=== PATIENT | male | born 1935 | race Caucasian/White ===

== ENCOUNTER 2019-11-04 00:23 | Emergency (ER) | payer MEDICARE, OTHER ==
[~2019-11-04] VITALS: Ht 180.3 cm; Wt 77.1 kg
[2019-11-04] MEDS ORDERED: OCUVITE ADULT1 EAC1 PO (00:39)
[2019-11-04] MEDS ORDERED: NAMENDA 10 MG T10 MG PO (00:40)
[2019-11-04] MEDS ORDERED: DIVALPROEX SOD125 MG PO (00:40)
[2019-11-04] MEDS ORDERED: MELATONIN5 MG PO (00:40)
[2019-11-04] MEDS ORDERED: OMEPRAZOLE40 MG PO (00:41)
[2019-11-04] MEDS ORDERED: SEROQUEL 50 MG50 M1 PO (00:41)
[2019-11-04] MEDS ORDERED: SEROQUEL 25 MG25 MG PO (00:41)
[2019-11-04] MEDS ORDERED: THEREMS1 EAC1 PO (00:42)
[2019-11-04] MEDS ORDERED: TRIAMTERENE/HCT1 CA1 PO (00:43)
[2019-11-04 01:40] LABS: ABSOLUTE EOSINOPHILS 0.1 thou/uL (0.0-0.7); ABSOLUTE LYMPHOCYTES 1.3 thou/uL (0.8-5.3); ABSOLUTE MONOCYTES 0.4 thou/uL (0.0-1.2); BASOPHILS 0.7 %; EOSINOPHILS 2.6 %; HEMATOCRIT 39.1 % (42.0-52.0); HEMOGLOBIN 13.4 gm/dL (14.0-18.0); MCH 32.9 pg (26.0-34.0); MCHC 34.4 g/dL (28.0-37.0); MCV 95.8 fL (80.0-100.0); MPV 7.4 fl. (7.2-11.1); NUCLEATED RBCS 0 /100WBC; PLATELET COUNT* 160 thou/uL (150-400); POLYS 51.7 %; RBC 4.09 mil/uL (4.50-6.00); RDW-CV 13.9 % (10.5-14.5); WBC 3.9 thou/uL (4.0-11.0)
[2019-11-04 01:43] LABS: CALCIUM 8.3 mg/dL (8.5-10.1); POTASSIUM 3.6 mmol/L (3.5-5.1)
[2019-11-04 01:44] LABS: INR 1.1; PROTIME 11.2 Seconds (9.20-11.50)
[2019-11-04 01:53] LABS: ALBUMIN 2.9 g/dL (3.4-5.0); MAGNESIUM 1.8 mg/dL (1.8-2.4); TOTAL BILIRUBIN 0.3 mg/dL (<0.1-1.0); TOTAL PROTEIN 6.7 g/dL (6.4-8.2)
[2019-11-04 04:13] LABS: URINE BILIRUBIN NEGATIVE (Negative); URINE BLOOD NEGATIVE (Negative); URINE CLARITY CLEAR; URINE COLOR YELLOW; URINE GLUCOSE-RANDOM NEGATIVE (Negative); URINE KETONES NEGATIVE (Negative); URINE LEUKOCYTES-REFLEX 1+ (Negative); URINE NITRITE-REFLEX NEGATIVE (Negative); URINE PROTEIN NEGATIVE (Negative); URINE SPECIFIC GRAVITY 1.015 (1.005-1.030); URINE UROBILINOGEN 0.2 E.U./dl (0.2-1.0)
[2019-11-04 04:46] LABS: CASTS None Seen /LPF (None Seen); SQUAMOUS 0-3 Few /LPF (0-3)
[2019-11-04 04:47] LABS: BACTERIA-REFLEX 1-9 Few /HPF (None Seen); CRYSTALS None Seen /LPF (None Seen); URINE RBC 3-10 Few /HPF (0-2)
[2019-11-04] MEDS ORDERED: BACTRIM DS TAB1 EACH PO (04:58)
[2019-11-04 06:00] VITALS: BP 130/60
--- NOTE | 2019-11-04 15:28 | EKG ---
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1935 Requested By: Fanny Leiva Order Number: [id number] MD: Brian Paiz Measurements Intervals [place] Rate: 52 P: 73 CA: 183 QRS: 85 QRSD: 145 T: 33 QT: 462 QTc: 430 Interpretive Statements Sinus rhythm Atrial premature complex Right bundle branch block Baseline wander in lead(s) V1 No previous ECG available for comparison Electronically Signed On 11-04-2019 15:27:20 CDT by Brian Paiz [email or web address] <ELECTRONICALLY SIGNED> By: Brian Paiz MD, [facility] 11/04/19 1527 0205 0205 Brian Paiz MD, [facility] /EPI
== END 2019-11-04 06:00 | disposition home or self-care (01) ==
LOC: M.ERS 00:23
PROVIDERS: Emergency Medicine
DX: N39.0 Urinary tract infection, site not specified (principal); R22.0 Localized swelling, mass and lump, head; G30.9 Alzheimer's disease, unspecified; F02.80 Dementia in other diseases classified elsewhere, unspecified severity, without behavioral disturbance, psychotic disturbance, mood disturbance, and anxiety; I10 Essential (primary) hypertension; M19.90 Unspecified osteoarthritis, unspecified site; Z88.1 Allergy status to other antibiotic agents; Z88.0 Allergy status to penicillin; Z79.899 Other long term (current) drug therapy; W19.XXXA Unspecified fall, initial encounter; Y93.89 Activity, other specified; Y92.129 Unspecified place in nursing home as the place of occurrence of the external cause; Y99.8 Other external cause status

== ENCOUNTER 2020-01-07 11:45 | Inpatient (IN) | payer MEDICARE, OTHER ==
[~2020-01-07] VITALS: Ht 182.9 cm; Wt 57.5 kg
--- NOTE | ~2020-01-07 | CON ---
[address] [address] CONSULTATION Name: ZOEY HENSLEY Room: [address] IN .R.#: [id number] Admission: 01/08/20 Attend Phys: Marie Saab MD Discharge: Date of : 31 Report #: [id number] THIS REPORT FOR: //name// cc: Sharonda Simon Kathryn C. DO ~ THIS REPORT FOR: //name// CC: Sharonda Saab DATE OF SERVICE: 01/21/2020 REQUESTING PHYSICIAN: Consult has been requested by the Dr. Mondragon INDICATION FOR CONSULTATION: COVID-19. HISTORY OF PRESENT ILLNESS: This is an 85-year-old gentleman. He has a history of dementia. He has been in this hospital since 01/07/2020 and was admitted with COVID-19. His first COVID-19 antigens were positive and the third has just come back negative. Interestingly, he had a COVID-19 PCR performed on 01/07/2020, which was negative. The patient has just been tapered down from 6 mg of dexamethasone to 4. He is on room air. He is afebrile. He is hemodynamically stable. The patient has a history of dementia and is unable to provide any further history or review of systems. PAST MEDICAL HISTORY: Dementia, Alzheimer's disease, hearing loss, osteoarthritis, bilateral leg weakness, and hypertension. SOCIAL HISTORY: There is no known history of smoking, ethanol abuse or drug abuse. CURRENT MEDICATIONS: [email or web address]. HOME MEDICATIONS: List in [facility] reviewed. ALLERGIES: PENICILLINS AND CLINDAMYCIN ARE MENTIONED ALLERGIES. FAMILY HISTORY: There is no known pertinent family history. PHYSICAL EXAMINATION: GENERAL: He is fully awake. He is screaming out and is confused. VITAL SIGNS: Pulse of 100 and a blood pressure of 127/82. He is saturating 95%. He is not on supplemental oxygen. Respiratory rate is mildly elevated to 20. His temperature is 37.0. NECK: Does not show raised JVP. CHEST: [place] [address] CONSULTATION Name: ZOEY HENSLEY Room: [address]#: [id number] Admission: 01/08/20 Attend Phys: Marie Saab MD Discharge: Date of : 31 Report #: [id number] HEART: Regular, no murmur. ABDOMEN: Soft and nontender. EXTREMITIES: Lower extremities show no edema and no calf tenderness. IMAGING DATA: We just repeated a chest x-ray shows chronic changes. There is mild atelectasis in the right hilar markings are more prominent than the previous chest x-ray. LABORATORY DATA: The patient's lab work including the CBC as well as [facility]istries [facility] and these are reviewed. He is in acute renal failure and his electrolytes are markedly abnormal. ASSESSMENT AND PLAN: 1. COVID-19. Agree with current management. We will taper off of dexamethasone. Chest x-ray findings are as above. We would only watch for now. I did not start antibiotics. 2. Acute renal failure with hypernatremia and hypokalemia. We will start IV fluids and we will correct electrolytes. We will repeat a chest x-ray as well as labs in the morning. 3. Dementia. 4. Deep venous thrombosis prophylaxis, he is on Lovenox. We will discontinue considering acute renal failure, we will plan to start subcutaneous heparin tomorrow. Thanks for this consultation. By: 21 [id number] Aguayo MD /ridge
[~2020-01-07 11:45] MED LIST: BACTRIM DS TAB1 EACH PO; DIVALPROEX SOD125 MG PO; MELATONIN5 MG PO; NAMENDA 10 MG T10 MG PO; OCUVITE ADULT1 EAC1 PO; OMEPRAZOLE40 MG PO; SEROQUEL 25 MG25 MG PO; SEROQUEL 50 MG50 M1 PO; THEREMS-M1 EACH PO; TRIAMTERENE/HCT1 CA1 PO
[2020-01-07 12:03] VITALS: BP 151/65
[2020-01-07] MEDS ORDERED: DESYREL150 MG PO (12:20)
[2020-01-07] MEDS ORDERED: TYLENOL325 M1 PO (12:20)
[2020-01-07 12:25] LABS: ABSOLUTE MONOCYTES 0.8 thou/uL (0.0-1.2); BASOPHILS 0.3 %; EOSINOPHILS 0.3 %; HEMATOCRIT 39.1 % (42.0-52.0); HEMOGLOBIN 13.5 gm/dL (14.0-18.0); LYMPHOCYTES 13.1 %; MCHC 34.5 g/dL (28.0-37.0); MCV 95.8 fL (80.0-100.0); MONOCYTES 10.2 %; MPV 7.7 fl. (7.2-11.1); NUCLEATED RBCS 0 /100WBC; PLATELET COUNT* 142 thou/uL (150-400); POLYS 76.1 %; RBC 4.08 mil/uL (4.50-6.00); RDW-CV 12.9 % (10.5-14.5); WBC 7.9 thou/uL (4.0-11.0)
[2020-01-07 12:34] LABS: CALCIUM 8.6 mg/dL (8.5-10.1); CREATININE 1.1 mg/dL (0.6-1.3); POTASSIUM 3.7 mmol/L (3.5-5.1)
[2020-01-07 12:40] LABS: TOTAL BILIRUBIN 0.9 mg/dL (<0.1-1.0); TOTAL PROTEIN 6.9 g/dL (6.4-8.2)
[2020-01-07 16:22] LABS: URINE BLOOD NEGATIVE (Negative); URINE CLARITY CLEAR; URINE COLOR YELLOW; URINE GLUCOSE-RANDOM NEGATIVE (Negative); URINE KETONES 2+ (Negative); URINE LEUKOCYTES-REFLEX NEGATIVE (Negative); URINE NITRITE-REFLEX NEGATIVE (Negative); URINE PROTEIN 1+ (Negative); URINE SPECIFIC GRAVITY >= 1.030 (1.005-1.030)
[2020-01-07 16:26] LABS: ICTOTEST (BILI CONFIRMATORY) Negative (Negative); URINE BILIRUBIN 1+ (Negative)
--- NOTE | 2020-01-07 16:45 | EKG ---
[place] [address] ELECTROCARDIOGRAM REPORT Name: ZOEY HENSLEY Room: [place] [address] ADM IN .R.#: [id number] Admission: 01/07/20 Attend Phys: Marie Saab, Discharge: Date of : 31 Date of Service: 01/07/20 1156 Report #: [id number] THIS REPORT FOR: //name// [facility] Test Date: 2020-01-07 Test Time: 11:56:19 Pat Name: ZOEY HENSLEY Department: Room: [place] [address] Gender: M Graduate Student: JOSH : 1935 Requested By: Marie Saab Order Number: [id number] Sergey MD: Luis Sahu Measurements Intervals [place] Rate: 88 P: 61 AK: 213 QRS: 77 QRSD: 136 T: 264 QT: 395 QTc: 478 Interpretive Statements atrial sensed and Ventricular-paced complexes No further analysis attempted due to paced rhythm Compared to ECG 11/04/2019 02:05:10 Atrial premature complex(es) no longer present ventricular paced rhythm noted Electronically Signed On 01-07-2020 16:45:07 CDT by Luis Sahu [email or web address] <ELECTRONICALLY SIGNED> By: Luis Sahu MD, FAC 01/07/20 1645 1156 1156 Luis Sahu MD, [facility] /EPI
[2020-01-07 19:26] LABS: APTT 27.8 Seconds (25.0-31.3); INR 1.1; PROTIME 11.4 Seconds (9.20-11.50)
[2020-01-07 19:32] LABS: NT-PRO BRAIN NAT PEPTIDE 1634 pg/mL (<300); TROPONIN-I LEVEL <0.06 ng/mL (<0.06)
[2020-01-07 20:00] VITALS: BP 140/88
[2020-01-08 08:00] VITALS: BP 158/39
[2020-01-08 12:00] VITALS: BP 158/82
[2020-01-08 12:04] VITALS: BP 171/69
[2020-01-08 20:00] VITALS: BP 143/77
[2020-01-09 00:09] VITALS: BP 138/65
[2020-01-09 04:32] VITALS: BP 105/44
[2020-01-09 05:03] LABS: ABSOLUTE EOSINOPHILS 0.1 thou/uL (0.0-0.7); ABSOLUTE LYMPHOCYTES 1.1 thou/uL (0.8-5.3); ABSOLUTE MONOCYTES 0.8 thou/uL (0.0-1.2); ABSOLUTE NEUTROPHILS 4.1 thou/uL (1.6-8.1); BASOPHILS 0.3 %; EOSINOPHILS 0.9 %; HEMATOCRIT 39.9 % (42.0-52.0); HEMOGLOBIN 13.8 gm/dL (14.0-18.0); LYMPHOCYTES 18.4 %; MCH 33.5 pg (26.0-34.0); MCHC 34.7 g/dL (28.0-37.0); MCV 96.7 fL (80.0-100.0); MPV 7.9 fl. (7.2-11.1); NUCLEATED RBCS 0 /100WBC; PLATELET COUNT* 140 thou/uL (150-400); POLYS 67.4 %; RBC 4.12 mil/uL (4.50-6.00); RDW-CV 12.9 % (10.5-14.5); WBC 6.1 thou/uL (4.0-11.0)
[2020-01-09 05:40] LABS: ALBUMIN 2.8 g/dL (3.4-5.0); ALKALINE PHOSPHATASE 47 U/L (46-116); ANION GAP 12 mmol/L (7-16); BUN 15 mg/dL (7-18); CALCIUM 8.4 mg/dL (8.5-10.1); CHLORIDE 104 mmol/L (98-107); CO2 25 mmol/L (21-32); CREATININE 0.8 mg/dL (0.6-1.3); GLUCOSE 76 mg/dL (70-99); NT-PRO BRAIN NAT PEPTIDE 787 pg/mL (<300); POTASSIUM 3.5 mmol/L (3.5-5.1); SGOT 39 U/L (15-37); SGPT 32 U/L (30-65); SODIUM 141 mmol/L (136-145); TOTAL BILIRUBIN 0.8 mg/dL (<0.1-1.0); TOTAL PROTEIN 6.2 g/dL (6.4-8.2); TROPONIN-I LEVEL <0.06 ng/mL (<0.06)
[2020-01-09 08:00] VITALS: BP 127/82
[2020-01-09 11:40] LABS: APTT 30.8 Seconds (25.0-31.3); PROTIME 10.8 Seconds (9.20-11.50)
[2020-01-09 12:00] VITALS: BP 159/94
[2020-01-09 20:00] VITALS: BP 166/71
[2020-01-10 08:00] VITALS: BP 127/81
[2020-01-10 12:34] VITALS: BP 149/84
[2020-01-10 14:24] LABS: HEMATOCRIT 41.8 % (42.0-52.0); HEMOGLOBIN 14.6 gm/dL (14.0-18.0); MCH 32.9 pg (26.0-34.0); MCHC 35.1 g/dL (28.0-37.0); MCV 93.9 fL (80.0-100.0); MPV 7.2 fl. (7.2-11.1); RBC 4.45 mil/uL (4.50-6.00); WBC 6.3 thou/uL (4.0-11.0)
[2020-01-10 14:34] LABS: APTT 30.7 Seconds (25.0-31.3); INR 1.1; PROTIME 11.2 Seconds (9.20-11.50)
[2020-01-10 14:43] LABS: PREALBUMIN 15.6 mg/dL (18.0-35.7)
[2020-01-10 14:44] LABS: ANION GAP 9 mmol/L (7-16); BUN 21 mg/dL (7-18); CALCIUM 9.1 mg/dL (8.5-10.1); CHLORIDE 103 mmol/L (98-107); CO2 28 mmol/L (21-32); CREATININE 1.1 mg/dL (0.6-1.3); GLUCOSE 99 mg/dL (70-99); NT-PRO BRAIN NAT PEPTIDE 646 pg/mL (<300); POTASSIUM 3.5 mmol/L (3.5-5.1); SODIUM 140 mmol/L (136-145); TROPONIN-I LEVEL <0.06 ng/mL (<0.06)
[2020-01-10 20:00] VITALS: BP 109/78
[2020-01-11] VITALS: BP 152/89
[2020-01-11 03:50] VITALS: BP 141/76
[2020-01-11 05:32] LABS: HEMATOCRIT 38.8 % (42.0-52.0); HEMOGLOBIN 13.5 gm/dL (14.0-18.0); MCH 32.7 pg (26.0-34.0); MCHC 34.9 g/dL (28.0-37.0); MCV 93.8 fL (80.0-100.0); MPV 6.7 fl. (7.2-11.1); RBC 4.14 mil/uL (4.50-6.00); RDW-CV 13.1 % (10.5-14.5); WBC 6.7 thou/uL (4.0-11.0)
[2020-01-11 06:00] LABS: ALBUMIN 3.1 g/dL (3.4-5.0); CALCIUM 9.4 mg/dL (8.5-10.1); CREATININE 1.3 mg/dL (0.6-1.3); MAGNESIUM 1.9 mg/dL (1.8-2.4); POTASSIUM 4.4 mmol/L (3.5-5.1); TOTAL BILIRUBIN 0.9 mg/dL (<0.1-1.0); TOTAL PROTEIN 7.3 g/dL (6.4-8.2)
[2020-01-11 08:20] VITALS: BP 136/98
[2020-01-11 13:52] VITALS: BP 152/84
[2020-01-11 17:57] VITALS: BP 143/77
[2020-01-11 20:00] VITALS: BP 138/74
[2020-01-12] VITALS (8 sets, daily range): BP systolic 113–162; BP diastolic 46–91
[2020-01-13 07:24] LABS: HEMATOCRIT 37.7 % (42.0-52.0); HEMOGLOBIN 13.1 gm/dL (14.0-18.0); MCH 32.9 pg (26.0-34.0); MCHC 34.8 g/dL (28.0-37.0); MCV 94.6 fL (80.0-100.0); MPV 7.2 fl. (7.2-11.1); RBC 3.99 mil/uL (4.50-6.00); RDW-CV 12.9 % (10.5-14.5); WBC 6.3 thou/uL (4.0-11.0)
[2020-01-13 07:32] LABS: CREATININE 1.3 mg/dL (0.6-1.3); MAGNESIUM 1.9 mg/dL (1.8-2.4); POTASSIUM 3.7 mmol/L (3.5-5.1)
[2020-01-13 08:00] VITALS: BP 141/78
[2020-01-13 16:22] VITALS: BP 121/69
[2020-01-13 20:00] VITALS: BP 161/93
[2020-01-14 04:00] VITALS: BP 125/85
[2020-01-14 08:00] VITALS: BP 111/81
[2020-01-14 19:50] VITALS: BP 149/64
[2020-01-14 23:45] VITALS: BP 150/91
[2020-01-15 09:15] VITALS: BP 153/105
[2020-01-15 17:32] VITALS: BP 146/79
[2020-01-15 19:50] VITALS: BP 156/86
[2020-01-16 04:53] LABS: HEMATOCRIT 42.2 % (42.0-52.0); HEMOGLOBIN 14.6 gm/dL (14.0-18.0); MCH 32.9 pg (26.0-34.0); MCHC 34.6 g/dL (28.0-37.0); MCV 95.2 fL (80.0-100.0); MPV 7.5 fl. (7.2-11.1); RBC 4.43 mil/uL (4.50-6.00); RDW-CV 13.4 % (10.5-14.5); WBC 10.4 thou/uL (4.0-11.0)
[2020-01-16 05:04] LABS: CALCIUM 9.6 mg/dL (8.5-10.1); CREATININE 1.5 mg/dL (0.6-1.3); MAGNESIUM 2.2 mg/dL (1.8-2.4); POTASSIUM 3.9 mmol/L (3.5-5.1)
[2020-01-16 09:45] VITALS: BP 152/73
[2020-01-16 12:25] VITALS: BP 156/131
[2020-01-16 18:27] VITALS: BP 151/85
[2020-01-16 19:40] VITALS: BP 132/84
[2020-01-17 09:41] LABS: HEMOGLOBIN 14.1 gm/dL (14.0-18.0); MCH 32.8 pg (26.0-34.0); MCHC 34.5 g/dL (28.0-37.0); MCV 95.2 fL (80.0-100.0); MPV 7.5 fl. (7.2-11.1); RBC 4.3 mil/uL (4.50-6.00); RDW-CV 13.2 % (10.5-14.5); WBC 9.8 thou/uL (4.0-11.0)
[2020-01-17 09:45] VITALS: BP 117/68
[2020-01-17 09:47] LABS: CALCIUM 9.1 mg/dL (8.5-10.1); CREATININE 1.9 mg/dL (0.6-1.3); MAGNESIUM 2.3 mg/dL (1.8-2.4); POTASSIUM 3.7 mmol/L (3.5-5.1); TOTAL BILIRUBIN 1.3 mg/dL (<0.1-1.0)
[2020-01-17 14:30] VITALS: BP 137/76
[2020-01-17 19:40] VITALS: BP 108/66
[2020-01-18 00:12] VITALS: BP 100/88
[2020-01-18 08:30] VITALS: BP 100/60
[2020-01-18 14:18] VITALS: BP 127/67
[2020-01-18 18:00] VITALS: BP 98/68
[2020-01-18 20:00] VITALS: BP 127/80
[2020-01-19 04:00] VITALS: BP 162/86
[2020-01-19 04:40] LABS: HEMATOCRIT 40.4 % (42.0-52.0); HEMOGLOBIN 14.1 gm/dL (14.0-18.0); MCH 32.7 pg (26.0-34.0); MCHC 34.9 g/dL (28.0-37.0); MCV 93.6 fL (80.0-100.0); MPV 7.6 fl. (7.2-11.1); RBC 4.32 mil/uL (4.50-6.00); RDW-CV 13.6 % (10.5-14.5); WBC 15.6 thou/uL (4.0-11.0)
[2020-01-19 05:18] LABS: ALBUMIN 3.3 g/dL (3.4-5.0); CALCIUM 9.5 mg/dL (8.5-10.1); MAGNESIUM 2.6 mg/dL (1.8-2.4); POTASSIUM 3.8 mmol/L (3.5-5.1); TOTAL BILIRUBIN 1.3 mg/dL (<0.1-1.0); TOTAL PROTEIN 7.5 g/dL (6.4-8.2)
[2020-01-19 08:30] VITALS: BP 138/78
[2020-01-19 16:00] VITALS: BP 144/80
[2020-01-19 21:00] VITALS: BP 143/90
[2020-01-20] VITALS: BP 142/68
[2020-01-20 08:00] VITALS: BP 170/76
[2020-01-20 16:00] VITALS: BP 143/89
[2020-01-20 20:00] VITALS: BP 156/86
[2020-01-21] VITALS: BP 144/66
[2020-01-21 08:00] VITALS: BP 115/57
[2020-01-21 12:00] VITALS: BP 127/82
[2020-01-21 14:20] LABS: HEMOGLOBIN 15.1 gm/dL (14.0-18.0); MCH 32.4 pg (26.0-34.0); MCHC 33.6 g/dL (28.0-37.0); MCV 96.6 fL (80.0-100.0); MPV 8.1 fl. (7.2-11.1); NUCLEATED RBCS 0 /100WBC; RBC 4.66 mil/uL (4.50-6.00); RDW-CV 13.6 % (10.5-14.5); WBC 20.3 thou/uL (4.0-11.0)
[2020-01-21 14:21] LABS: PLATELET COUNT* 483 thou/uL (150-400)
[2020-01-21 14:30] LABS: ALBUMIN 3.4 g/dL (3.4-5.0); CALCIUM 9.7 mg/dL (8.5-10.1); POTASSIUM 3.4 mmol/L (3.5-5.1); TOTAL BILIRUBIN 1.2 mg/dL (<0.1-1.0); TOTAL PROTEIN 8.7 g/dL (6.4-8.2)
[2020-01-21 14:34] LABS: CREATININE 3.6 mg/dL (0.6-1.3)
[2020-01-21 14:55] LABS: ABSOLUTE LYMPHOCYTES 1.4 thou/uL (0.8-5.3); ABSOLUTE MONOCYTES 1.6 thou/uL (0.0-1.2); ABSOLUTE NEUTROPHILS 17.3 thou/uL (1.6-8.1)
[2020-01-21 14:57] LABS: CLUMPED PLTS RARE; LARGE PLATELETS OCCASIONAL; PLATELET ESTIMATE INCREASED
[2020-01-21 22:00] VITALS: BP 135/96
[2020-01-22 00:08] LABS: URINE BILIRUBIN 2+ (Negative); URINE BLOOD NEGATIVE (Negative); URINE CLARITY CLEAR; URINE COLOR YELLOW; URINE GLUCOSE-RANDOM NEGATIVE (Negative); URINE KETONES TRACE (Negative); URINE LEUKOCYTES-REFLEX NEGATIVE (Negative); URINE NITRITE-REFLEX NEGATIVE (Negative); URINE PROTEIN NEGATIVE (Negative); URINE SPECIFIC GRAVITY >= 1.030 (1.005-1.030)
[2020-01-22 00:13] LABS: ICTOTEST (BILI CONFIRMATORY) Negative (Negative)
[2020-01-22 00:26] VITALS: BP 134/95
[2020-01-22 04:58] LABS: ABSOLUTE LYMPHOCYTES 0.9 thou/uL (0.8-5.3); ABSOLUTE MONOCYTES 1.9 thou/uL (0.0-1.2); ABSOLUTE NEUTROPHILS 22.4 thou/uL (1.6-8.1); BASOPHILS 0.1 %; HEMATOCRIT 41.7 % (42.0-52.0); HEMOGLOBIN 14.3 gm/dL (14.0-18.0); LYMPHOCYTES 3.6 %; MCH 32.5 pg (26.0-34.0); MCHC 34.2 g/dL (28.0-37.0); MCV 94.9 fL (80.0-100.0); MONOCYTES 7.7 %; MPV 7.6 fl. (7.2-11.1); NUCLEATED RBCS 0 /100WBC; PLATELET COUNT* 439 thou/uL (150-400); POLYS 88.6 %; RBC 4.39 mil/uL (4.50-6.00); RDW-CV 13.2 % (10.5-14.5); WBC 25.3 thou/uL (4.0-11.0)
[2020-01-22 05:25] LABS: ALBUMIN 3.2 g/dL (3.4-5.0); CALCIUM 9.1 mg/dL (8.5-10.1); MAGNESIUM 3.3 mg/dL (1.8-2.4); TOTAL BILIRUBIN 1.1 mg/dL (<0.1-1.0); TOTAL PROTEIN 7.9 g/dL (6.4-8.2)
[2020-01-22 05:28] LABS: CREATININE 5.2 mg/dL (0.6-1.3)
[2020-01-22 05:33] LABS: PHOSPHORUS* 8.1 mg/dL (2.5-4.9)
[2020-01-22 08:00] VITALS: BP 118/73
[2020-01-22 12:17] LABS: CREATININE 5.5 mg/dL (0.6-1.3); POTASSIUM 4.6 mmol/L (3.5-5.1)
[2020-01-22 18:22] LABS: CREATININE 5.1 mg/dL (0.6-1.3); POTASSIUM 4.5 mmol/L (3.5-5.1)
[2020-01-22 20:00] VITALS: BP 124/70
[2020-01-23 04:06] LABS: ABSOLUTE LYMPHOCYTES 1.1 thou/uL (0.8-5.3); ABSOLUTE MONOCYTES 1.4 thou/uL (0.0-1.2); ABSOLUTE NEUTROPHILS 20.7 thou/uL (1.6-8.1); BASOPHILS 0.2 %; EOSINOPHILS 0.1 %; HEMATOCRIT 41.8 % (42.0-52.0); HEMOGLOBIN 14.1 gm/dL (14.0-18.0); LYMPHOCYTES 4.7 %; MCH 32.3 pg (26.0-34.0); MCHC 33.8 g/dL (28.0-37.0); MCV 95.5 fL (80.0-100.0); NUCLEATED RBCS 0 /100WBC; RBC 4.38 mil/uL (4.50-6.00); RDW-CV 13.4 % (10.5-14.5); WBC 23.3 thou/uL (4.0-11.0)
[2020-01-23 04:20] LABS: PLATELET COUNT* 360 thou/uL (150-400)
[2020-01-23 04:33] LABS: ALBUMIN 2.9 g/dL (3.4-5.0); CALCIUM 8.6 mg/dL (8.5-10.1); CREATININE 4.5 mg/dL (0.6-1.3); TOTAL BILIRUBIN 1.7 mg/dL (<0.1-1.0); TOTAL PROTEIN 7.4 g/dL (6.4-8.2)
[2020-01-23 07:37] VITALS: BP 120/76
[2020-01-23 10:08] VITALS: BP 120/76
--- NOTE | 2020-01-23 10:17 | CON ---
[address] [address] CONSULTATION Name: ZOEY HENSLEY Room: [address] IN [facility]#: [id number] Admission: 01/08/20 Attend Phys: Marie Saab MD Discharge: Date of : 31 Report #: [id number] THIS REPORT FOR: //name// cc: Sharonda Simon Kathryn C. DO ~ THIS REPORT FOR: //name// CC: Sharonda Saab DATE OF SERVICE: 01/22/2020 REQUESTING PHYSICIAN: Dr. Saab. REASON FOR CONSULTATION: Acute kidney injury. HISTORY OF PRESENT ILLNESS: The patient is an 85-year-old white male with medical history significant for advanced dementia, admitted with complaints of weakness, progressive confusion. He was diagnosed with COVID infection. The patient had a pacemaker placement this week at [facility]. The patient is nonverbal. PAST MEDICAL HISTORY: Significant for advanced dementia, multiple falls, physical debility, chronic UTIs. MEDICATIONS: Prior to admission reviewed. REVIEW OF SYSTEMS: Unable to obtain because he is nonverbal. SOCIAL HISTORY: Noncontributory. FAMILY HISTORY: Noncontributory. PHYSICAL EXAMINATION: GENERAL: Chronically ill-looking gentleman, in the process of being fed by the nurse. VITAL SIGNS: Blood pressure 118/73, heart rate is 102, respirations 16, temperature 36.3. EXTREMITIES: He has got severe muscle wasting. He is breathing without any distress. Rest of exam was not done due to COVID infection and increased risk of the transformation. LABORATORY DATA: Report revealed serum sodium of 153, potassium 5.0, chloride 112, carbon dioxide 24, BUN 144, creatinine is 5.2, hemoglobin is 14.3, white count 25.3 [place] [address] CONSULTATION Name: ZOEY HENSLEY Room: [address]#: [id number] Admission: 01/08/20 Attend Phys: Marie Saab MD Discharge: Date of : 31 Report #: [id number] ASSESSMENT: 1. Acute kidney injury likely due to COVID infection. 2. COVID-19 infection. 3. Advanced dementia. PLAN: 1. Continue with D5W. 2. Follow labs. 3. Brody catheter in. 4. The patient is not a dialysis candidate. <ELECTRONICALLY SIGNED> By: Ata Steve MD 01/23/20 1017 1110 1906Ajaylen Steve MD /nt
[2020-01-23 21:09] VITALS: BP 139/56
[2020-01-24 04:03] LABS: HEMATOCRIT 40.5 % (42.0-52.0); MCH 32.7 pg (26.0-34.0); MCHC 34.4 g/dL (28.0-37.0); MPV 7.6 fl. (7.2-11.1); NUCLEATED RBCS 0 /100WBC; PLATELET COUNT* 302 thou/uL (150-400); RBC 4.27 mil/uL (4.50-6.00); RDW-CV 13.5 % (10.5-14.5); WBC 15.8 thou/uL (4.0-11.0)
[2020-01-24 04:21] LABS: ALBUMIN 2.9 g/dL (3.4-5.0); CALCIUM 8.8 mg/dL (8.5-10.1); POTASSIUM 4.3 mmol/L (3.5-5.1); TOTAL BILIRUBIN 1.6 mg/dL (<0.1-1.0); TOTAL PROTEIN 7.6 g/dL (6.4-8.2)
[2020-01-24 06:52] LABS: ABSOLUTE LYMPHOCYTES 1.1 thou/uL (0.8-5.3); ABSOLUTE MONOCYTES 0.2 thou/uL (0.0-1.2); ABSOLUTE NEUTROPHILS 14.5 thou/uL (1.6-8.1)
[2020-01-24 06:53] LABS: PLATELET ESTIMATE ADEQUATE
[2020-01-24 08:13] VITALS: BP 159/66
[2020-01-24 16:00] VITALS: BP 148/53
[2020-01-24 20:30] VITALS: BP 125/84
[2020-01-25 04:31] LABS: HEMATOCRIT 38.8 % (42.0-52.0); HEMOGLOBIN 13.2 gm/dL (14.0-18.0); MCH 32.7 pg (26.0-34.0); MCHC 33.9 g/dL (28.0-37.0); MCV 96.5 fL (80.0-100.0); MPV 7.7 fl. (7.2-11.1); RBC 4.02 mil/uL (4.50-6.00); RDW-CV 13.3 % (10.5-14.5); WBC 12.5 thou/uL (4.0-11.0)
[2020-01-25 05:31] LABS: POTASSIUM 3.7 mmol/L (3.5-5.1)
[2020-01-25 07:30] VITALS: BP 172/71
[2020-01-25 16:00] VITALS: BP 166/58
[2020-01-25 20:00] VITALS: BP 137/54
[2020-01-26 04:01] LABS: HEMATOCRIT 36.3 % (42.0-52.0); HEMOGLOBIN 12.3 gm/dL (14.0-18.0); MCH 32.4 pg (26.0-34.0); MCHC 33.9 g/dL (28.0-37.0); MCV 95.8 fL (80.0-100.0); MPV 7.8 fl. (7.2-11.1); RBC 3.79 mil/uL (4.50-6.00); RDW-CV 12.8 % (10.5-14.5); WBC 10.5 thou/uL (4.0-11.0)
[2020-01-26 04:32] LABS: ALBUMIN 2.3 g/dL (3.4-5.0); CALCIUM 8.1 mg/dL (8.5-10.1); CREATININE 1.5 mg/dL (0.6-1.3); POTASSIUM 3.2 mmol/L (3.5-5.1); TOTAL BILIRUBIN 1.2 mg/dL (<0.1-1.0); TOTAL PROTEIN 6.6 g/dL (6.4-8.2)
[2020-01-26 07:10] VITALS: BP 144/54
[2020-01-26 15:30] VITALS: BP 144/53
[2020-01-26 22:30] VITALS: BP 138/58
[2020-01-27 04:34] LABS: ABSOLUTE EOSINOPHILS 0.2 thou/uL (0.0-0.7); ABSOLUTE LYMPHOCYTES 1.1 thou/uL (0.8-5.3); ABSOLUTE MONOCYTES 0.6 thou/uL (0.0-1.2); BASOPHILS 0.1 %; EOSINOPHILS 1.6 %; HEMATOCRIT 36.4 % (42.0-52.0); HEMOGLOBIN 12.7 gm/dL (14.0-18.0); LYMPHOCYTES 11.1 %; MCH 33.2 pg (26.0-34.0); MCHC 34.9 g/dL (28.0-37.0); MCV 95.3 fL (80.0-100.0); MONOCYTES 5.9 %; MPV 7.8 fl. (7.2-11.1); NUCLEATED RBCS 0 /100WBC; PLATELET COUNT* 247 thou/uL (150-400); POLYS 81.3 %; RBC 3.82 mil/uL (4.50-6.00); RDW-CV 13.3 % (10.5-14.5); WBC 9.8 thou/uL (4.0-11.0)
[2020-01-27 05:34] LABS: ALBUMIN 2.4 g/dL (3.4-5.0); CALCIUM 7.8 mg/dL (8.5-10.1); CREATININE 1.2 mg/dL (0.6-1.3); MAGNESIUM 1.8 mg/dL (1.8-2.4); POTASSIUM 3.6 mmol/L (3.5-5.1); TOTAL BILIRUBIN 0.9 mg/dL (<0.1-1.0); TOTAL PROTEIN 6.4 g/dL (6.4-8.2)
[2020-01-27 08:00] VITALS: BP 139/53
[2020-01-27 16:13] VITALS: BP 116/49
[2020-01-27 22:00] VITALS: BP 137/68
[2020-01-28 04:07] LABS: HEMATOCRIT 35.5 % (42.0-52.0); HEMOGLOBIN 12.3 gm/dL (14.0-18.0); MCH 32.7 pg (26.0-34.0); MCHC 34.5 g/dL (28.0-37.0); MCV 94.9 fL (80.0-100.0); MPV 7.8 fl. (7.2-11.1); RBC 3.75 mil/uL (4.50-6.00); RDW-CV 13.2 % (10.5-14.5)
[2020-01-28 04:38] LABS: CALCIUM 7.9 mg/dL (8.5-10.1); CREATININE 1.2 mg/dL (0.6-1.3); MAGNESIUM 1.6 mg/dL (1.8-2.4); POTASSIUM 3.5 mmol/L (3.5-5.1)
[2020-01-28 08:00] VITALS: BP 156/55
[2020-01-28 11:55] LABS: URINE BLOOD 2+ (Negative); URINE CLARITY CLEAR; URINE COLOR YELLOW; URINE GLUCOSE-RANDOM NEGATIVE (Negative); URINE KETONES 1+ (Negative); URINE LEUKOCYTES-REFLEX 1+ (Negative); URINE NITRITE-REFLEX NEGATIVE (Negative); URINE PROTEIN 1+ (Negative); URINE SPECIFIC GRAVITY 1.025 (1.005-1.030)
[2020-01-28 12:04] LABS: ICTOTEST (BILI CONFIRMATORY) Negative (Negative); URINE BILIRUBIN 2+ (Negative)
[2020-01-28 12:12] LABS: SQUAMOUS 0-3 Few /LPF (0-3)
[2020-01-28 12:13] LABS: BACTERIA-REFLEX 1-9 Few /HPF (None Seen); CASTS None Seen /LPF (None Seen); CRYSTALS None Seen /LPF (None Seen); URINE WBC-REFLEX 6-15 Few /HPF (0-5); YEAST-REFLEX Present (None Seen)
[2020-01-28 16:00] VITALS: BP 141/66
[2020-01-28 21:00] VITALS: BP 128/100
[2020-01-29 04:23] LABS: HEMATOCRIT 36.3 % (42.0-52.0); HEMOGLOBIN 12.5 gm/dL (14.0-18.0); MCH 32.8 pg (26.0-34.0); MCHC 34.3 g/dL (28.0-37.0); MCV 95.6 fL (80.0-100.0); MPV 8.4 fl. (7.2-11.1); RBC 3.8 mil/uL (4.50-6.00); RDW-CV 13.5 % (10.5-14.5); WBC 12.6 thou/uL (4.0-11.0)
[2020-01-29 04:46] LABS: ALBUMIN 2.4 g/dL (3.4-5.0); CREATININE 1.1 mg/dL (0.6-1.3); MAGNESIUM 1.7 mg/dL (1.8-2.4); TOTAL BILIRUBIN 0.7 mg/dL (<0.1-1.0); TOTAL PROTEIN 6.4 g/dL (6.4-8.2)
[2020-01-29 07:45] VITALS: BP 115/49
[2020-01-29] MEDS ORDERED: LACTULOSE20 GM/30 M PO (08:34)
[2020-01-29 12:04] VITALS: BP 120/76
[2020-01-29 15:20] VITALS: BP 120/76
== END 2020-01-29 14:45 | DRG 177 ==
LOC: M.ERS 11:45 → M.TBA-ER 15:45 → M.2W 16:32 → M.ORTHSURG 01-22 15:03
PROVIDERS: Family Medicine; Internal Medicine; Internal Medicine Critical Care Medicine; Internal Medicine Nephrology; Personal Emergency Response Attendant; ADMIT Internal Medicine; ATTEND Internal Medicine
DX: U07.1 COVID-19 (principal); G93.41 Metabolic encephalopathy; J15.6 Pneumonia due to other Gram-negative bacteria; J96.01 Acute respiratory failure with hypoxia; N17.0 Acute kidney failure with tubular necrosis; E87.0 Hyperosmolality and hypernatremia; A04.9 Bacterial intestinal infection, unspecified; B37.89 Other sites of candidiasis; I10 Essential (primary) hypertension; K56.41 Fecal impaction; E87.6 Hypokalemia; E86.0 Dehydration; G30.9 Alzheimer's disease, unspecified; F02.80 Dementia in other diseases classified elsewhere, unspecified severity, without behavioral disturbance, psychotic disturbance, mood disturbance, and anxiety; M19.90 Unspecified osteoarthritis, unspecified site; Z79.899 Other long term (current) drug therapy; Z88.1 Allergy status to other antibiotic agents; Z88.0 Allergy status to penicillin